=== PATIENT | male | born 1960 | race Caucasian/White ===

== ENCOUNTER → 2017-02-11 | Outpatient (CLI) | payer OTHER ==
[~2017-02-11] MED LIST: ASPEC81 PO; ATOR-24 PO; CLOP1TAB5 PO; GABA300C19 PO; ULT50X PO
--- NOTE | 2017-02-11 10:52 | DIAGNOSTIC IMAGING REPORT ---
BILATERAL CAROTID DOPPLER STUDY HISTORY: History of stroke. Change in mental status COMPARISON: Neck MRA 10/18/2016. TECHNIQUE: Real-time, grayscale, and color Doppler sonography of the carotid arteries was performed. Imaging reviewed in the transverse and longitudinal planes. All measurements were calculated based on NASCET criteria. FINDINGS: Antegrade flow is seen in the bilateral vertebral arteries. The brachial pressures are hemodynamically similar. Mild calcified plaque within the bilateral carotid bulbs. This includes a linear focal calcification within the proximal right ICA which remains unchanged. The peak systolic velocity within the right ICA is 88 cm/s. The right systolic ratio is 0.9. The peak systolic velocity within the left ICA is 49 cm/s. The left systolic ratio is 0.5. IMPRESSION: No hemodynamically significant stenosis seen within the carotid arteries. Electronically signed by: Simón Sanchez M.D. 02/11/2017 10:50 AM Dictated Date/Time: 02/11/2017 10:46 AM
--- NOTE | 2017-02-11 11:40 | DIAGNOSTIC IMAGING REPORT ---
LEFT RIBS UNILATERAL WITH PA CHEST CLINICAL HISTORY: Left-sided chest and rib pain COMPARISON STUDY: No previous studies for comparison. FINDINGS: The erect chest reveals no pneumothorax. There is no focal pulmonary consolidation. There are no pleural effusions. There is a left seventh rib fracture. IMPRESSION: Fracture of the left seventh rib. No evidence of pneumothorax. Electronically signed by: Dontae Hall M.D. 02/11/2017 11:39 AM Dictated Date/Time: 02/11/2017 11:37 AM
[2017-02-11 13:34] LABS: AST/SGOT 14 U/L (15-37); BLOOD UREA NITROGEN 12 mg/dl (7-18); BUN/CREATININE RATIO 12.6 (10-20); CALCIUM 9.4 mg/dl (8.5-10.1); CARBON DIOXIDE 27 mmol/L (21-32); CHLORIDE 105 mmol/L (98-107); CHOLESTEROL 119 mg/dl (0-200); CREATININE 0.98 mg/dl (0.60-1.40); GLUCOSE 88 mg/dl (70-99); SODIUM 139 mmol/L (136-145); TRIGLYCERIDES 138 mg/dl (0-150); VERY LOW DENSITY LIPOPROT CALC 28 mg/dl
[2017-02-11 13:36] LABS: HDL CHOLESTEROL 40 mg/dl
--- NOTE | 2017-02-11 17:48 | EXERCISE STRESS TEST ---
ORDERING PHYSICIAN: Dr. Kierra Patiño. TIME: 17:09. PROCEDURE: Exercise stress ECG per standard Willis protocol. INDICATIONS: Chest pain. CONSENT: Informed written consent was obtained. PROCEDURAL DETAILS: Exercise stress testing was performed via the standard Willis protocol. Baseline ECG demonstrated sinus rhythm at 65 beats per minute. Normal ECG. Exercise stress ECG did not demonstrate any significant ST changes. There was no arrhythmia. There was very rare PVC. No chest pain was reported. He did report burning in his legs and did become fatigued, which was the reason for termination of the study. Maximum heart rate was 146 beats per minute representing 90% maximum predicted heart rate. The resting blood pressure was 124/75 mmHg. Maximum blood pressure was 201/80 mmHg. He exercised a total of 5 minutes and 9 seconds, which entered into the second stage of the standard Willis protocol. He achieved 7 mets. IMPRESSION: 1. Negative exercise stress ECG for ischemia at 90% maximum predicted heart rate. 2. No chest pain. 3. Mildly hypertensive response to exercise. 4. No arrhythmia. Very rare premature ventricular contraction. 5. Fair exercise tolerance.
== END | disposition home or self-care (01) ==
LOC: C.ULTR 09:54
PROVIDERS: ATTEND Physician Assistant Medical
DX: R07.9 Chest pain, unspecified (principal); Z11.59 Encounter for screening for other viral diseases; E78.5 Hyperlipidemia, unspecified; R53.83 Other fatigue; Z86.73 Personal history of transient ischemic attack (TIA), and cerebral infarction without residual deficits

== ENCOUNTER → 2017-04-01 | Outpatient (CLI) | payer OTHER ==
[~2017-04-01] MED LIST changes: +GABA-1218 PO; -GABA300C19 PO
== END | disposition home or self-care (01) ==
LOC: C.MAMM 09:22
PROVIDERS: ATTEND Family Medicine
DX: Z87.81 Personal history of (healed) traumatic fracture (principal); M85.89 Other specified disorders of bone density and structure, multiple sites